=== PATIENT | female | born 1980 | race American Indian/Alaskan Native ===

== ENCOUNTER 2025-02-18 20:27 | Emergency (ER) | payer MEDICARE, MEDICAID, SELFPAY ==
[2025-02-18 20:33] VITALS: BP 138/100; PULSE 108; RESP 20; TEMP 36.8; O2SAT 100; BMI 33.4
--- OUTSIDE RECORDS SUMMARY | 2025-02-18 20:42 | XMS_ITS | Encounter Summary ---
Author Organization [facility] Address [address] [place] [address] Care Team Providers Care Brick Maker Name Role Phone Charlene Samuels Primary Care Provider [phone] Encounter Details Date Type Department Care Team (Late st Contact Info) Description 11/19/[address] [facility] Oncology Infusion [address] [phone] Janelle Pressley RAISIN SEPARATOR OPERATOR[address] [phone] Anemia due to vitamin B12 deficiency, unspecified B12 deficiency type (Primary Dx) Social History Tobacco Use Types Packs/Day Years Used Date Smoking Tobacco: Never Smokeless Tobacco: Never Comments No Sex and Gender Information Value Date Recorded Sex Assigned at Female 11/11/2020 2:03 PM PDT Legal Sex Female 7:13 PM PDT Gender Identity Female 11/11/2020 2:03 PM PDT Sexual Orientation Not on file documented as of this encounter Plan of Treatment Upcoming Encounters Date Type Department Care Team (Late st Contact Info) Description 04/06/2025 12:00 PM PST Lab [facility] [address] [place] [phone] 04/08/2025 3:00 PM PST Office Visit [facility] Oncology [address] [phone] Geeta Reynaga ARNP [address] [place] [address] documented as of this encounter Visit Diagnoses Diagnosis Anemia due to vitamin B12 deficiency, unspecified B12 deficiency type- Primary documented in this encounter Care Teams Brick Maker Relationship Specialty Start Date End Date Charlene Samuels [address] [place] [address] PCP - General Family Medicine 09/05/24 documented as of this encounter
--- NOTE | 2025-02-18 20:45 | PC.NURSE ---
pt moved from lobby to room 5
--- NOTE | 2025-02-18 20:50 | EKG_ITS ---
[address] [address] Test Date: 2025-02-19 Pat Name: Julia Herrera Department: Room: Gender: Female Director Part: MICHELLE : 1980 Requested By: Order Number: [id number] Reading MD: Henry Hendrickson Measurements Intervals [place] Rate: 70 P: 60 VT: 136 QRS: 52 QRSD: 104 T: 48 QT: 390 QTc: 421 Interpretive Statements Normal sinus rhythm Minimal voltage criteria for LVH, may be normal variant ( Osmel product ) Electronically Signed On 02-21-2025 10:20:12 PST by Henry Hendrickson
[2025-02-18 21:22] LABS: Add Manual Diff / Slide Review NO; Hematocrit 36.9 % (36-46); Hemoglobin 12.4 g/dL (12.0-16.0); Lymphocytes Absolute Auto 1400 /uL (1100-4500); Mean Corpuscular HGB Conc 33.7 % (30-36); Mean Corpuscular Hemoglobin 29.2 PG (26-34); Mean Corpuscular Volume 86.5 fL (80-100); Platelet Count 416 X10^3/uL (150-400)
[2025-02-18 21:32] LABS: Alanine Aminotransferase 19 IU/L (<35); Albumin 3.9 g/dL (3.5-5.0); Albumin Globulin Ratio 1.4 (1.0-2.8); Alkaline Phosphatase 62 U/L (38-126); Blood Urea Nitrogen 13 mg/dL (7-17); Calcium 8.7 mg/dL (8.4-10.2); Carbon Dioxide 29 mmol/L (22-32); Chloride 104 mmol/L (98-107); Estimated Glomerular Filt Rate > 60 mL/min (>60); Globulin 2.7 g/dL (1.7-4.1); Glucose 95 mg/dL (70-99); HEMOLYSIS < 15 (0-50); Lipase 113 U/L (23-300); Potassium 4.0 mmol/L (3.4-5.1); Sodium 135 mmol/L (137-145); Total Protein 6.6 g/dL (6.3-8.2)
--- NOTE | 2025-02-18 21:46 | PC.NURSE ---
pt moved from room 5 to room 7
[2025-02-18 22:00] VITALS: BP 130/60; PULSE 92; O2SAT 100
[2025-02-18 22:23] LABS: Culture Indicated Urine Cult Not Indicated
[2025-02-18 22:30] VITALS: BP 119/63; PULSE 91; O2SAT 99
[2025-02-18 23:00] VITALS: BP 111/59; PULSE 96; RESP 16; O2SAT 99
--- NOTE | 2025-02-18 23:21 | ED.GENADULT ---
HPI - General Adult General Chief complaint: Abdominal Pain Stated complaint: Severe abd pain Time Seen by Provider: 02/18/25 21:20 Source: patient Mode of arrival: Ambulatory History of Present Illness HPI narrative: 44-year-old woman with a history of gastric bypass in 2012 in which her gallbladder was removed, she has had a hiatal hernia repaired complains of a month of abdominal pain initially seemed to be worse with the eating when almost a week without eating and had significant decrease in stools now she notes that her stools are still less frequent and only every 2-3 days rather than her usual daily bowel movements. There has been no blood in it. No dysuria, she did have an episode of emesis around Thanksgiving which is actually fairly in use her Nidia fundoplication. The pain she states is in her upper abdomen sometimes radiates to the back sometimes associated with bloating does not feel burning or stabbing. Does not affect her lower abdomen. Related Data Previous Rx's ?Medication ?Instructions ?Recorded peg 3350-electrolytes 236 240 ml PO Q10M #4,000 mL 02/19/25 gram-22.74 gram-6.74 gram-5.86 gram solution (Golytely) Allergies Allergy/AdvReac Type Severity Reaction Status Date / Time meperidine (From Demerol) AdvReac Vomiting Verified 02/18/25 20:41 Review of Systems Review of Systems Narrative: Pertinent positive and negative findings as per HPI Patient History Surgical History (Updated 02/18/25 @ 23:31 by Gladys Shirley MD) Hx of cholecystectomy History of Nidia fundoplication Gastric bypass status for obesity Social History Smoking Status: Never smoker Smoking Status: Never smoker Exam Initial Vital Signs Initial Vital Signs: Vital Signs Temperature 98.3 F 02/18/25 20:33 Pulse Rate 108 H 02/18/25 20:33 Respiratory Rate 20 02/18/25 20:33 Blood Pressure 138/100 H 02/18/25 20:33 Pulse Oximetry 100 02/18/25 20:33 Oxygen Delivery Method Room Air 02/18/25 20:33 General: Healthy appearing, appears moderately uncomfortable but Able to give a complete and coherent history. Well-nourished well-developed HEENT: Moist mucous membranes, normal sclera with reactive pupils, Respiratory: Lungs are clear to auscultation, no wheezing no rales no rhonchi. Full and symmetrical air movement Cardiac: Regular rate and rhythm Abdomen: Soft, nontender, she indicates the upper abdomen is the source of tenderness which is not reproducible with palpation today no rebound or guarding, no flank pain Skin: Warm and dry, no rashes Neurologic: Grossly neurologically intact with no obvious asymmetries or abnormalities Extremities: No trauma, well perfused Psych: Cooperative, appropriate insight and affect Course Orders Ordered: ED Orders 02/18/25 20:50 EKG-12 Lead Stat 02/18/25 21:08 Complete Blood Count AUTO DIFF Stat Comprehensive Metabolic Panel Stat Lipase Stat 02/18/25 22:00 Urine Microscopic Stat 02/18/25 23:28 CT abdomen pelvis w con Stat Ondansetron HCl (Ondansetron 4 Mg/2 Ml Inj) 4 mg IV NOW PRN PRN Reason: Nausea And Vomiting Ondansetron HCl (Ondansetron 4 Mg Odt) 4 mg PO NOW PRN PRN Reason: Nausea And Vomiting Discontinued Medications Sodium Chloride (Normal Saline 0.9%) 1,000 mls @ 1,000 mls/hr IV BOLUS ONE Stop: 02/19/25 02:38 Last Admin: 02/19/25 01:46 Dose: 1,000 mls/hr Documented By: AB Vital Signs Vital signs: Vital Signs - 8 hr 02/18/25 20:33 02/18/25 22:00 02/18/25 22:00 Temperature 98.3 F Pulse Rate 108 H 92 H Respiratory Rate 20 Blood Pressure 138/100 H 130/60 Pulse Oximetry 100 100 Oxygen Delivery Method Room Air 02/18/25 22:30 02/18/25 22:30 02/18/25 23:00 Temperature Pulse Rate 91 H 96 H Respiratory Rate Blood Pressure 119/63 Pulse Oximetry 99 99 Oxygen Delivery Method 02/18/25 23:00 02/18/25 23:30 02/18/25 23:30 Temperature Pulse Rate 90 Respiratory Rate 16 Blood Pressure 111/59 L 118/63 Pulse Oximetry 100 Oxygen Delivery Method 02/19/25 00:00 02/19/25 00:00 02/19/25 00:30 Temperature Pulse Rate 91 H 91 H Respiratory Rate 20 Blood Pressure 123/58 L Pulse Oximetry 99 99 Oxygen Delivery Method 02/19/25 00:30 02/19/25 01:00 02/19/25 01:00 Temperature Pulse Rate 89 Respiratory Rate 18 Blood Pressure 135/68 123/64 Pulse Oximetry 99 Oxygen Delivery Method 02/19/25 01:30 02/19/25 01:30 02/19/25 02:00 Temperature Pulse Rate 84 83 Respiratory Rate Blood Pressure 125/59 L Pulse Oximetry 99 98 Oxygen Delivery Method Room Air 02/19/25 02:01 02/19/25 02:01 Temperature Pulse Rate 83 Respiratory Rate Blood Pressure 106/56 L Pulse Oximetry 96 Oxygen Delivery Method Room Air Medical Decision Making Lab Data 02/18/25 21:08 02/18/25 21:08 Labs: Lab Results 02/18/25 02/18/25 Range/Units 21:08 22:00 WBC 4.6 (4.5-11.0) X10^3/uL RBC 4.27 (4.0-5.2) X10^6/uL Hgb 12.4 (12.0-16.0) g/dL Hct 36.9 (36-46) % MCV 86.5 (80-100) fL MCH 29.2 (26-34) PG MCHC 33.7 (30-36) % RDW 14.8 (11.6-14.8) % Plt Count 416 H (150-400) X10^3/uL Neut % (Auto) 59.6 (50-75) % Lymph % (Auto) 29.8 (25-40) % [place] % (Auto) 8.5 (3-14) % Eos % (Auto) 1.4 L (2-4) % Baso % (Auto) 0.7 (0-2) % Neut # (Auto) 2800 (6652-1432) /uL Lymph # (Auto) 1400 (0403-3228) /uL [place] # (Auto) 400 (0-900) /uL Eos # (Auto) 100 (0-450) /uL Baso # (Auto) 0 (0-100) /uL Sodium 135 L (137-145) mmol/L Potassium 4.0 (3.4-5.1) mmol/L Chloride 104 (98-107) mmol/L Carbon Dioxide 29 (22-32) mmol/L BUN 13 (7-17) mg/dL Creatinine 0.61 (0.52-1.04) mg/dL Estimated GFR > 60 (>60) mL/min BUN/Creatinine Ratio 21.3 (6-22) Glucose 95 (70-99) mg/dL Calcium 8.7 (8.4-10.2) mg/dL Total Bilirubin 0.5 (0.2-1.3) mg/dL AST 27 (14-36) IU/L ALT 19 (<35) IU/L Alkaline Phosphatase 62 (38-126) U/L Total Protein 6.6 (6.3-8.2) g/dL Albumin 3.9 (3.5-5.0) g/dL Globulin 2.7 (1.7-4.1) g/dL Albumin/Globulin Ratio 1.4 (1.0-2.8) Lipase 113 (23-300) U/L Urine RBC 1-5/hpf (0-5/HPF) Urine WBC 0-1/hpf (0-5/HPF) Ur Squamous Epith Cells 1-5 /hpf (0-5/HPF) Urine Bacteria Few (2-10) H (None) Ur Culture Indicated? Cult not indicated Vol Urine Centrifuged 10ml (spun) Point of Care Testing Test Results Negative Urine Dip Bedside Urine Glucose Negative Bedside Urine Bilirubin - Negative Bedside Urine Ketone - Negative Urine Specific [place] 1.010 Bedside Urine Occult Blood ++ Bedside Urine pH 7.5 Bedside Urine Protein - Negative Bedside Urine Urobilinogen +/- 1mg Bedside Urine Nitrite - Negative Bedside Urine Leukocytes - Negative Esterase Point of care testing: Point of Care Testing Test Results Negative Urine Dip Bedside Urine Glucose Negative Bedside Urine Bilirubin - Negative Bedside Urine Ketone - Negative Urine Specific [place] 1.010 Bedside Urine Occult Blood ++ Bedside Urine pH 7.5 Bedside Urine Protein - Negative Bedside Urine Urobilinogen +/- 1mg Bedside Urine Nitrite - Negative Bedside Urine Leukocytes - Negative Esterase Imaging Data CT scan - abdomen/pelvis: Radiologist's Impression: PROCEDURE: CT ABDOMEN PELVIS W CON INDICATIONS: abdominal pain TECHNIQUE: After the administration of intravenous contrast, axial sections acquired from the lung bases to the pubic symphysis. Coronal and sagittal reformats were performed. For radiation dose reduction, the following was used: automated exposure control, adjustment of mA and/or kV according to patient size. COMPARISON: [facility], CT, CT ABDOMEN PELVIS WITH CONTRAST, 09/30/2017, 20:40. FINDINGS: Image quality: Diagnostic Lower chest: Mild bibasal atelectasis. Normal heart size. Liver: 1.1 cm left lobe hypoattenuating lesion is seen, above fluid density, possibly slightly larger than 2018. Gallbladder and biliary system: Cholecystectomy clips, mildly ectatic biliary system likely related to postsurgical state Pancreas: Mildly ectatic pancreatic duct, without discrete mass lesion identified. Spleen: Nonenlarged Adrenals: No discrete nodules Kidneys: Moderate multifocal parapelvic cysts bilaterally. No hydronephrosis. Vessels and lymph nodes: Main portal vein is patent. No abdominal aortic aneurysm. No lymphadenopathy seen by size criteria. Bowel and peritoneum: Lien-en-Y gastric bypass. No bowel obstruction. Trace pelvic free fluid, likely physiologic. Moderate overall colonic fecal loading with greater burden in the proximal colon. Nondilated appendix. No drainable abscess or ascites. Body wall: Unremarkable Pelvis: Bladder is unremarkable. Reproductive organs are unremarkable on limited CT evaluation. Bones: Diffuse degenerative osseous changes. No aggressive appearing osseous abnormality. IMPRESSION: No bowel obstruction. Lien-en-Y gastric bypass changes. Moderate overall colonic fecal loading, with greater burden in the proximal colon. 1.1 cm left low hypoattenuating lesion above cystic density in the left lobe of the liver, slightly larger than 2018. Most common considerations include complicated cyst and hemangioma. Nonurgent further evaluation suggested with liver MRI. Other findings above. Dictated by: Jordy Doyle M.D. on 02/19/2025 at 0:36 MDM Narrative Medical decision making narrative: 44-year-old woman with a month of intermittent abdominal pain Complications include prior Lien-en-Y bypass Differential includes gastroenteritis, bowel obstruction, complication of Lien-en-Y bypass, constipation, gastritis Imaging with CT scan shows no bowel obstruction no obvious abnormalities with surgical Lien-en-Y changes but appreciation for overall colonic fecal loading with majority of the stool in the proximal colon Labs show normal CBC, chemistries including renal function electrolytes and liver studies are unremarkable Urine does not suggest urinary tract infection On re-examination patient remains tender but does not have an acute surgical abdomen. Reviewed all findings including normal lab work and CT scans with her. My recommendation for her severe constipation that is likely the source for chronic abdominal pain is a full bowel prep and drinking enough fluid she is getting to mostly clear stool she does not need to finish the complete prep and this is shared with her. After that I recommended a daily scoop of MiraLax unless she is having loose stools at baseline. She expresses understanding, there was no indication for further workup or hospitalization and she is safely discharged Discharge Plan Departure Patient Disposition: Home Clinical Impression: Constipation Qualifiers: Constipation type: other constipation type Qualified Code(s): K59.09 - Other constipation Abdominal pain Qualifiers: Abdominal location: generalized Qualified Code(s): R10.84 - Generalized abdominal pain Instructions: DI for Constipation Activity Restrictions/Additional Instructions: Thank you for coming in today Your blood work was all reassuring. There was no evidence of bacterial infection, anemia, kidney function, electrolyte abnormalities. With your continued abdominal pain and history of your gastric bypass, a CT scan was done. There is no surgical pathology appreciated everything appears as it should with a very large amount of stool throughout your entire colon. I suspect this severe degree of constipation is causing the bloating as well as your pain. With this much stool through your entire colon my recommendation is essentially a full bowel prep such as you would do before colonoscopy. Prescription for the GoLYTELY prep has been sent to [facility] in [place]. You need to drink enough that your bowels have completely emptied and you are almost to just watery stool. You do not need to complete the entire prep if you get to that is stage with fluid still left To prevent recurrent episodes of constipation, please consider a scoop of MiraLax every day with breakfast. If you find that you are getting worse or develop any new symptoms, please feel free to return to the emergency department for further evaluation. Prescriptions: New peg 3350-electrolytes [Golytely] 236-22.74-6.74 -5.86 gram recon soln 240 ml PO Q10M Qty: 4000 0RF Rx Instructions: until fecal effluent is clear Referrals: Charlene Quarles MD [Primary Care Provider, Family Practice] Stand Alone Forms: Patient Portal/API
--- NOTE | 2025-02-18 23:28 | DI.CT.S_ITS ---
PROCEDURE: CT ABDOMEN PELVIS W CON INDICATIONS: abdominal pain TECHNIQUE: After the administration of intravenous contrast, axial sections acquired from the lung bases to the pubic symphysis. Coronal and sagittal reformats were performed. For radiation dose reduction, the following was used: automated exposure control, adjustment of mA and/or kV according to patient size. COMPARISON: [facility], CT, CT ABDOMEN PELVIS WITH CONTRAST, 09/30/2017, 20:40. FINDINGS: Image quality: Diagnostic Lower chest: Mild bibasal atelectasis. Normal heart size. Liver: 1.1 cm left lobe hypoattenuating lesion is seen, above fluid density, possibly slightly larger than 2018. Gallbladder and biliary system: Cholecystectomy clips, mildly ectatic biliary system likely related to postsurgical state Pancreas: Mildly ectatic pancreatic duct, without discrete mass lesion identified. Spleen: Nonenlarged Adrenals: No discrete nodules Kidneys: Moderate multifocal parapelvic cysts bilaterally. No hydronephrosis. Vessels and lymph nodes: Main portal vein is patent. No abdominal aortic aneurysm. No lymphadenopathy seen by size criteria. Bowel and peritoneum: Lien-en-Y gastric bypass. No bowel obstruction. Trace pelvic free fluid, likely physiologic. Moderate overall colonic fecal loading with greater burden in the proximal colon. Nondilated appendix. No drainable abscess or ascites. Body wall: Unremarkable Pelvis: Bladder is unremarkable. Reproductive organs are unremarkable on limited CT evaluation. Bones: Diffuse degenerative osseous changes. No aggressive appearing osseous abnormality. IMPRESSION: No bowel obstruction. Lien-en-Y gastric bypass changes. Moderate overall colonic fecal loading, with greater burden in the proximal colon. 1.1 cm left low hypoattenuating lesion above cystic density in the left lobe of the liver, slightly larger than 2018. Most common considerations include complicated cyst and hemangioma. Nonurgent further evaluation suggested with liver MRI. Other findings above. Dictated by: Jordy Doyle M.D. on 02/19/2025 at 0:36 Approved by: Jordy Doyle M.D. on 02/19/2025 at 0:44
[2025-02-18 23:30] VITALS: BP 118/63; PULSE 90; O2SAT 100
[2025-02-19] VITALS (8 sets, daily range): BP systolic 106–135; BP diastolic 56–68; PULSE 79–91; RESP 18–20; O2SAT 96–100
[2025-02-19] MEDS: SODIUM CHLORIDE 0.9% 1,000 ML 1000 ML IV (01:46)
== END 2025-02-19 03:16 | disposition home or self-care (01) ==
PROVIDERS: Emergency Provider Emergency Medicine; PCP Family Medicine
DX: K59.09 Other constipation (principal); R10.84 Generalized abdominal pain; M54.9 Dorsalgia, unspecified
CPT/HCPCS: 36415; 74177; 80053; 81003; 81015; 81025; 83690; 85025; 93005; 96360; 99284; J7030; Q9967